=== PATIENT | female | born 1955 | race Caucasian/White ===

== ENCOUNTER 2020-06-02 15:17 | Emergency (ER) | payer BC ==
[2020-06-02] MEDS ORDERED: HYDROmorphone 0.5 MG/0.5 ML Syringe IVPUSH ONE (16:21)
--- NOTE | 2020-06-02 16:22 | EDM.PDOC ---
<Clare Polo - Last Filed: 06/02/20 18:45> ED HPI GENERAL MEDICAL PROBLEM - General Chief Complaint: Flank Pain Stated Complaint: FELL- RT SIDE PAIN Time Seen by Provider: 06/02/20 16:22 Source of Information: Reports: Patient History Limitations: Reports: No Limitations - History of Present Illness INITIAL COMMENTS - FREE TEXT/NARRATIVE: pt was sitting on a stool and tipped off and landed on her rt side onto a cement wall. She is having very severe pain in the rt lower anterior rib cage. She is having pain in her upper abdoman. Onset: Today, Sudden Duration: Hour(s): Location: Reports: Chest, Abdomen Associated Symptoms: Reports: Chest Pain, Other (pain in the upper rt abdoman. ) Right Chest Pain Score (Numeric/FACES): 7 - Related Data Allergies Allergy/AdvReac Type Severity Reaction Status Date / Time codeine Allergy Nausea Verified 06/02/20 16:33 Penicillins Allergy Hives Verified 06/02/20 16:33 Home Meds: Home Meds . [Unable to Verify Home Med List] 06/02/20 [History] ED ROS GENERAL - Review of Systems Review Of Systems: See Below Constitutional: Reports: Diaphoresis HEENT: Reports: No Symptoms Respiratory: Reports: Pleuritic Chest Pain, Other (pt hurts in her rt chest with movement and deep breathing. ) Cardiovascular: Reports: No Symptoms Endocrine: Reports: No Symptoms GI/Abdominal: Reports: Abdominal Pain, Nausea, Other (pt has pain in her rt upper abdoman. ) : Reports: No Symptoms Musculoskeletal: Reports: No Symptoms Skin: Reports: No Symptoms ED EXAM, GI/ABD - Physical Exam Exam: See Below Text/Narrative:: pt arrived with pain in the rt lower chest anteriorly and in her rt upper abdoman. She fell off of a stool and hit a cement wall. Exam Limited By: No Limitations General Appearance: Alert, Severe Distress Ears: Normal TMs Nose: Normal Inspection Throat/Mouth: Normal Inspection Head: Atraumatic Neck: Normal Inspection Respiratory/Chest: Other (pt is having severe pain with deep breathing. ) Cardiovascular: Regular Rate, Rhythm GI/Abdominal Exam: Tender, Other (pt has tenderness in the rt upper abdoman. ) (Female) Exam: Deferred Rectal (Female) Exam: Deferred Back Exam: Normal Inspection Extremities: Normal Inspection Neurological: Alert, Oriented, Normal Cognition Psychiatric: Anxious Course - Re-Assessments/Exams Free Text/Narrative Re-Assessment/Exam: 06/02/20 18:45 pt was found to have normal lab work. Departure - Departure Disposition: Home, Self-Care 01 Clinical Impression: Right rib fracture Qualifiers: Encounter type: initial encounter Rib fracture type: multiple ribs Fracture type: closed Qualified Code(s): S22.41XA - Multiple fractures of ribs, right side, initial encounter for closed fracture - Discharge Information Instructions: Rib Fracture, [id number] Referrals: PCP,None [Primary Care Provider] - Forms: ED Department Discharge Care Plan Goals: Use ibuprofen or naproxen for pain control and increase activity as tolerated. Ice to sore areas for the next 2 days may be beneficial and use stronger pain medication if needed. Recheck in 3 to 4 days if not improving satisfactorily after you return home, or return anytime if worsening such as difficulty breathing or uncontrolled pain. <Ian Riley - Last Filed: 06/02/20 21:52> Course - Vital Signs Last Recorded V/S: Last Vital Signs Temp 97.5 F 06/02/20 16:30 Pulse 60 06/02/20 16:30 Resp 19 06/02/20 18:20 BP 144/73 H 06/02/20 18:20 Pulse Ox 93 L 06/02/20 18:20 - Orders/Labs/Meds Labs: Laboratory Tests 06/02/20 06/02/20 06/02/20 Range/Units 16:25 16:25 17:48 WBC 14.4 H (4.5-11.0) K/uL RBC 4.82 (3.30-5.50) M/uL Hgb 14.6 (12.0-15.0) g/dL Hct 44.7 (36.0-48.0) % MCV 93 (80-98) fL MCH 30 (27-31) pg MCHC 33 (32-36) % Plt Count 311 (150-400) K/uL Neut % (Auto) 75 H (36-66) % Lymph % (Auto) 14 L (24-44) % Page % (Auto) 10 H (2-6) % Eos % (Auto) 1 L (2-4) % Baso % (Auto) 1 (0-1) % Sodium 142 (140-148) mmol/L Potassium 3.9 (3.6-5.2) mmol/L Chloride 104 (100-108) mmol/L Carbon Dioxide 31 (21-32) mmol/L Anion Gap 7.1 (5.0-14.0) mmol/L BUN 20 H (7-18) mg/dL Creatinine 0.9 (0.6-1.0) mg/dL Est Cr Clr Drug Dosing 59.79 mL/min Estimated GFR (MDRD) > 60 (>60) Glucose 144 H (74-106) mg/dL Calcium 9.1 (8.5-10.1) mg/dL Total Bilirubin 0.6 (0.2-1.0) mg/dL AST 73 H (15-37) U/L ALT 62 (12-78) U/L Alkaline Phosphatase 125 H (46-116) U/L Total Protein 7.7 (6.4-8.2) g/dL Albumin 4.0 (3.4-5.0) g/dL Globulin 3.7 H (2.3-3.5) g/dL Albumin/Globulin Ratio 1.1 L (1.2-2.2) Urine Color Yellow (YELLOW) Urine Appearance Clear (CLEAR) Urine pH 7.0 (5.0-8.0) Ur Specific Milner 1.025 (1.008-1.030) Urine Protein Negative (NEGATIVE) mg/dL Urine Glucose (UA) Negative (NEGATIVE) mg/dL Urine Ketones Negative (NEGATIVE) mg/dL Urine Occult Blood Negative (NEGATIVE) Urine Nitrite Negative (NEGATIVE) Urine Bilirubin Negative (NEGATIVE) Urine Urobilinogen 0.2 (0.2-1.0) EU/dL Ur Leukocyte Esterase Negative (NEGATIVE) Urine RBC 0-5 (0-5) Urine WBC 0-5 (0-5) Ur Epithelial Cells Rare Amorphous Sediment Not seen Urine Bacteria Rare Urine Mucus Not seen Meds: Medications Discontinued Medications Generic Name Dose Route Start Last Admin Trade Name Freq PRN Reason Stop Dose Admin Hydromorphone HCl 0.5 mg 06/02/20 16:21 06/02/20 16:48 Dilaudid IVPUSH 06/02/20 16:22 0.5 mg ONETIME ONE Administration Hydromorphone HCl 1 mg 06/02/20 17:34 06/02/20 17:37 Dilaudid IVPUSH 06/02/20 17:35 1 mg ONETIME ONE Administration Sodium Chloride 1,000 mls @ 999 mls/hr 06/02/20 16:30 06/02/20 16:51 Normal Saline IV 999 mls/hr ASDIRECTED SABINE Administration Sodium Chloride 80 mls @ 3 mls/sec 06/02/20 17:30 06/02/20 18:03 Normal Saline IV 3 mls/sec ASDIRECTED SABINE Administration Iopamidol 100 ml 06/02/20 17:30 06/02/20 18:03 Isovue-300 (61%) IV 100 ml . DIRECTED SABINE Administration Ondansetron HCl 4 mg 06/02/20 17:14 06/02/20 17:31 Zofran IVPUSH 06/02/20 17:15 4 mg ONETIME ONE Administration Sodium Chloride 10 ml 06/02/20 17:17 06/02/20 18:03 Saline Flush FLUSH 10 ml ASDIRECTED PRN Administration Keep Vein Open - Re-Assessments/Exams Free Text/Narrative Re-Assessment/Exam: 06/02/20 19:14 Patient care turned over from Dr. Polo pending CT reports. Patient has a nondisplaced fracture of the sixth and eighth ribs on the right side, no underlying pulmonary injury and the CTs are otherwise negative. She was given 10 hydrocodone to use for pain control and will recheck when she gets home in the next couple of days. She can return sooner if difficulty breathing or other concerns. Departure - Departure Time of Disposition: 19:28 Sepsis Event Note (ED) - Focused Exam Vital Signs: Vital Signs Temp Pulse Resp BP Pulse Ox 06/02/20 18:20 19 144/73 H 93 L 06/02/20 16:41 136/77 98 06/02/20 16:30 97.5 F 60 20 149/81 H 90 L 06/02/20 16:11 97.5 F 60 20 149/81 H 90 L
[2020-06-02] MEDS ORDERED: Sodium Chloride 0.9% 1,000 ML IV SCH (16:30)
[2020-06-02] MEDS ORDERED: Ondansetron 4 MG/2 ML SDV IVPUSH ONE (17:14)
[2020-06-02] MEDS ORDERED: Sodium Chloride 0.9% 10 ML Syringe FLUSH PRN (17:17)
[2020-06-02] MEDS ORDERED: Iopamidol 612 MG/ML 100 ML Bottle IV SCH (17:30)
[2020-06-02] MEDS ORDERED: Sodium Chloride 0.9% 80 ML IV SCH (17:30)
[2020-06-02] MEDS ORDERED: HYDROmorphone 1 MG/ML Syringe IVPUSH ONE (17:34)
--- NOTE | 2020-06-02 19:04 | CRLCT ---
INDICATION: Left lower rib contusion following fall TECHNIQUE: CT chest, abdomen and pelvis acquired with IV contrast. 100 cc Isovue-300 COMPARISON: None FINDINGS: Chest: Cardiovascular structures: Heart size is normal. Thoracic aorta and main pulmonary artery are normal in caliber. Mediastinum and cindy: No mass or adenopathy. Lungs: Clear. Pleura and pericardium: No effusions. Chest wall and axilla: No mass or adenopathy. Bones: Unremarkable for age. Abdomen and Pelvis: Liver: Unremarkable. Spleen: The spleen is absent. Pancreas: Unremarkable. Gallbladder and bile ducts: Unremarkable. Kidneys: Unremarkable. Adrenal glands: Unremarkable. GI tract: Unremarkable. Appendix is not definitely demonstrated. Vascular structures: Unremarkable. Lymph nodes: Unremarkable. Miscellaneous: 3.3 centimeter x 2.1 centimeter lobulated soft tissue density anterior lateral to the left adrenal gland. No free air or significant free fluid. Pelvic Organs: Unremarkable. Bones: Unremarkable for age. IMPRESSION: Atraumatic appearance of the chest, abdomen, and pelvis. The spleen is absent. 3.3 centimeter x 2.1 centimeter lobulated soft tissue density anterior lateral to the left adrenal gland. Findings are nonspecific and may represent a splenule or accessory spleen. Dictated by Ham La MD @ 06/02/2020 7:02:00 PM Please note that all CT scans at this facility use dose modulation, iterative reconstruction, and/or weight-based dosing when appropriate to reduce radiation dose to as low as reasonably achievable. Dictated by: Ham La MD @ 06/02/2020 19:02:07 (Electronically Signed)
== END 2020-06-02 20:23 | disposition home or self-care (01) ==
LOC: JP.ED 15:17
DX: S22.41XA Multiple fractures of ribs, right side, initial encounter for closed fracture (principal); Z88.5 Allergy status to narcotic agent; Z88.0 Allergy status to penicillin; W01.0XXA Fall on same level from slipping, tripping and stumbling without subsequent striking against object, initial encounter
CPT/HCPCS: 36415; 71260; 74177; 80053; 81001; 85025; 96374; 96375; 96376; 99284; J1170; J2405; J7030; J7050; Q9967